=== PATIENT | male | born 1935 | race Caucasian/White ===

== ENCOUNTER 2018-06-26 10:31 | Day surgery (SDC) | payer OTHER ==
[2018-06-26] MEDS ORDERED: NS 1,000 ML IV ONE (10:38)
[2018-06-26] MEDS ORDERED: FAMOTIDINE 20 MG TAB PO ONE (10:38)
[2018-06-26] MEDS ORDERED: ASPIRIN EC 325 MG TAB PO ONE (10:38)
[2018-06-26] MEDS ORDERED: diphenhydrAMINE 25 MG CAP PO ONE (10:38)
[2018-06-26] MEDS ORDERED: DIAZEPAM 5 MG TAB PO ONE (10:38)
[2018-06-26 11:09] LABS: PLATELET COUNT 245 10^3/uL (150-400)
[2018-06-26] MEDS ORDERED: MIDAZOLAM 2 MG/2 ML VIAL ONE (11:16)
[2018-06-26] MEDS ORDERED: fentaNYL 100 MCG/2 ML INJ ONE (11:16)
[2018-06-26] MEDS ORDERED: LIDOCAINE 1% 300 MG/30 ML SDV ONE (11:16)
[2018-06-26 11:17] LABS: INR 0.95 (0.83-1.16); PROTIME(PATIENT) 12.9 SEC (12.0-15.0)
[2018-06-26] MEDS ORDERED: HEPARIN 10,000 UNIT/10 ML MDV (1,000 UNIT/ML) ONE (11:17)
[2018-06-26] MEDS ORDERED: IOPAMIDOL (ISOVUE-370) 150 ML BTL IV ONE (11:17)
[2018-06-26] MEDS ORDERED: VERAPAMIL 5 MG/2 ML VIAL ONE (11:17)
--- NOTE | 2018-06-26 11:23 | PDPROPOC ---
Sedation Plan of Care Sedation Plan of Care: vital signs stable, mental status noted, patient educated of risks, benefits, alternatives, patient can tolerate sedation ASA Classification: ASA 1 Planned drugs: fentanyl, midazolam Mallampati Score: Class 1 Mallampati Reference Image: Patient passed 3-3-2 rule?: Yes
--- NOTE | 2018-06-26 11:23 | PDHPUP ---
History & Physical Update H&P update statement: This history and physical update is based on an assessment of the patient which was completed after admission or registration (within 24 hours), but prior to the surgery/procedure. H&P update: H&P reviewed & patient examined, no change in patient's condition since H&P completed
--- NOTE | 2018-06-26 14:03 | PDDXCAT ---
Diagnostic Cath Note - . Date: 06/26/18 Upper Shaper: Jomar Indication: High-risk criteria on noninvasive testing (choose option below) High-risk criteria on non-invasive testing: stress-induced moderate-size multiple perfusion defects - Procedure Access: right wrist Procedure: left heart catheterization, coronary angiography, left ventriculogram - Materials Left Heart Cath size: 5F Left Heart Cath materials: JL3.5, JR4.0, pigtail - Findings-Left Heart Catheterization LM: Unobstructed LAD: 50% eccentric proximal plaque. LCX: Unobstructed RCA: Dominant: Unobstructed EDP: 15 mm of mercury LVEF: 60 Wall motion: Normal Complications: None Estimated blood loss: <50ml Closure method: TR Band Assessment: No contraindications to hip surgery identified by today's examination. Moderate nonobstructive coronary atherosclerotic cardiovascular disease. Preserved left ventricular systolic function with normal filling pressures. Plan: Continue aggressive secondary prevention. Clinical follow-up.
--- NOTE | 2018-06-26 14:40 | CPEKG ---
Test Reason : OPEN Blood Pressure : / mmHG Vent. Rate : 060 BPM Atrial Rate : 060 BPM P-R Int : 161 ms QRS Dur : 122 ms QT Int : 422 ms P-R-T Axes : 050 -57 030 degrees QTc Int : 422 ms Sinus rhythm Nonspecific IVCD with LAD Confirmed by Albino Gordon ([id number]) on 06/26/2018 2:40:22 PM Referred By: Confirmed By:Albino Gordon
[2018-06-26] MEDS ORDERED: LOPERAMIDE HCL 2 MG CAP PO PRN (16:45)
[2018-06-26] MEDS ORDERED: BUDESONIDE 3 MG EC CAP PO SCH (22:00)
[2018-06-27] MEDS ORDERED: ASPIRIN 81 MG CHEWABLE TAB PO SCH (09:00)
[2018-06-27] MEDS ORDERED: CLOPIDOGREL BISULFATE 75 MG TAB PO SCH (09:00)
== END 2018-06-26 18:05 | disposition home or self-care (01) ==
LOC: FCATH 10:31
PROVIDERS: ATTEND Internal Medicine Interventional Cardiology
PROC: 4A023N7 Measurement of Cardiac Sampling and Pressure, Left Heart, Percutaneous Approach (ICD-10-PCS; principal; 2018-06-26)
PROC: B2151ZZ Fluoroscopy of Left Heart using Low Osmolar Contrast (ICD-10-PCS; principal; 2018-06-26)
PROC: B2111ZZ Fluoroscopy of Multiple Coronary Arteries using Low Osmolar Contrast (ICD-10-PCS; principal; 2018-06-26)
DX: Z01.818 Encounter for other preprocedural examination (principal); I25.10 Atherosclerotic heart disease of native coronary artery without angina pectoris; I67.2 Cerebral atherosclerosis; I10 Essential (primary) hypertension; E78.5 Hyperlipidemia, unspecified; Z86.73 Personal history of transient ischemic attack (TIA), and cerebral infarction without residual deficits; Z86.711 Personal history of pulmonary embolism
CPT/HCPCS: 93005; 93458; C1769; J1644; J2250; J3010; Q9967

== ENCOUNTER 2018-07-09 09:45 | Inpatient (IN) | payer OTHER ==
[~2018-07-09 09:45] MED LIST: POVIDONE-IODINE 20 ML in SODIUM CL IRRIG SOLUTION 500 ML IRR ONE; ROPIVACAINE 0.2% 80 MG, EPINEPHrine 0.2 MG, KETOROLAC TROMETHAMINE 30 MG in SYRINGE 0 ML IU ONE; TRANEXAMIC ACID 1,000 MG in NS 100 ML IV ONE; TRANEXAMIC ACID 3,000 MG in NS (SYRINGE) 50 ML IRR ONE
[2018-07-09] MEDS ORDERED: ceFAZolin 1 GM/5 ML SYR ONE (09:59)
[2018-07-09] MEDS ORDERED: TRANEXAMIC ACID 3,000 MG/50 ML BAG IRR ONE (09:59)
[2018-07-09] MEDS ORDERED: ceFAZolin 2 GM/DEXTROSE 100 ML IV ONE (10:01)
[2018-07-09] MEDS ORDERED: ONDANSETRON 4 MG/2 ML VIAL IVP ONE (10:01)
[2018-07-09] MEDS ORDERED: ACETAMINOPHEN 325 MG TAB PO ONE (10:01)
[2018-07-09] MEDS ORDERED: GABAPENTIN 300 MG CAP PO ONE (10:01)
[2018-07-09] MEDS ORDERED: DEXAMETHASONE 4 MG/ML VIAL IVP ONE (10:01)
[2018-07-09] MEDS ORDERED: FAMOTIDINE 20 MG TAB PO ONE (10:01)
[2018-07-09] MEDS ORDERED: LR 1,000 ML IV ONE (10:02)
--- NOTE | 2018-07-09 10:46 | PDHPUP ---
History & Physical Update H&P update statement: This history and physical update is based on an assessment of the patient which was completed after admission or registration (within 24 hours), but prior to the surgery/procedure. H&P update: H&P reviewed & patient examined
[2018-07-09] MEDS ORDERED: MIDAZOLAM 2 MG/2 ML VIAL IVP ONE (11:43)
[2018-07-09] MEDS ORDERED: MIDAZOLAM 2 MG/2 ML VIAL ONE (11:46)
[2018-07-09] MEDS ORDERED: fentaNYL 100 MCG/2 ML INJ ONE (11:54)
[2018-07-09] MEDS ORDERED: PROPOFOL/EMULSION 500 MG/50 ML BOTTLE IV ONE (11:54)
--- NOTE | 2018-07-09 12:46 | PDANEPAE ---
ANE History of Present Illness DJD R hip s/f R SOL ANE Past Medical History - Cardiovascular History Hx Hypertension: Yes Hx Arrhythmias: No Hx Chest Pain: No Hx Coronary Artery / Peripheral Vascular Disease: Yes Hx CHF / Valvular Disease: No Hx Palpitations: No Cardiovascular History Comment: CEA on left, recent cath without significant CAD - Pulmonary History Hx COPD: No Hx Asthma/Reactive Airway Disease: No Hx Recent Upper Respiratory Infection: No Hx Oxygen in Use at Home: No Hx Sleep Apnea: Yes Sleep Apnea Screening Result - Last Documented: Positive Pulmonary History Comment: TERESA uses cpap - Neurologic History Hx Cerebrovascular Accident: No Hx Seizures: No Hx Dementia: No Neurologic History Comment: TIA 20yrs ago - Endocrine History Hx Diabetes: No - Renal History Hx Renal Disorders: No Renal History Comment: HX RHABDOMYLOSIS r/t statins - Liver History Hx Hepatic Disorders: No - Neurological & Psychiatric Hx Hx Neurological and Psychiatric Disorders: No - Cancer History Hx Cancer: Yes Cancer History Comment: PROSTATE CA. SKIN SQUAMOUS CELL - Congenital Disorder History Hx Congenital Disorders: No - GI History Hx Gastrointestinal Disorders: Yes Gastrointestinal History Comment: ESOPHAGEAL/HIATEL HERNIA. DIAHRREA. - Other Health History Other Health History: bruises easily - Chronic Pain History Chronic Pain: No - Surgical History Prior Surgeries: prostate CA 15yrs ago. esophageal/stomach surgery. cardiac cath 2019 ANE Review of Systems Review of Systems: - Exercise capacity METS (RN): 4 METS ANE Patient History - Allergies Allergies/Adverse Reactions: Pfaxmkh-Sge-Lou Reductase Inhibitor Allergy (Verified 06/12/18 11:28) Other-Enter Comments SEASONAL Allergy (Mild, Uncoded 05/27/09 17:54) NASAL CONGESTION - Home Medications Home medications: home medication list seen and reviewed Home Medications: Aspirin [Aspirin 81mg (*)] 06/25/18 [Last Taken 07/05/18] Budesonide [Budesonide EC] 06/25/18 [Last Taken 07/08/18] Clopidogrel Bisulfate [Plavix (*)] 06/25/18 [Last Taken 07/05/18] Loperamide HCl [Imodium 2 mg (*)] 06/25/18 [Last Taken 2 Days Ago ~07/07/18] - NPO status NPO Status: no food or drink >8 hours NPO Since - Liquids (Date): 07/08/18 NPO Since - Liquids (Time): 20:30 NPO Since - Solids (Date): 07/08/18 NPO Since - Solids (Time): 20:30 - Anes Hx Anes Hx: no prior problems - Smoking Hx Smoking Status: Former smoker - Alcohol Use Alcohol Use: None - Family Anes Hx Family Anes Hx: none Family Hx Anesthesia Complications: none ANE Labs/Vital Signs - Vital Signs Blood Pressure: 175/79 Heart Rate: 55 Respiratory Rate: 16 O2 Sat (%): 93 Height: 179.07 cm Weight: 86.183 kg ANE Physical Exam - Airway Neck exam: FROM Mallampati Score: Class 1 - Pulmonary Pulmonary: no respiratory distress - Cardiovascular Cardiovascular: regular rate and rhythym - ASA Status ASA Status: II ANE Anesthesia Plan Anesthesia Plan: spinal (rr/b/a explained and plavix considered-risk very low)
[2018-07-09] MEDS ORDERED: PROPOFOL 200 MG/20 ML VIAL ONE ×2 (12:49→13:06)
--- NOTE | 2018-07-09 13:26 | POSTOPPROG ---
Post Op Note Date of Operation: 07/09/18 Surgeon: Andrzej Willett Ip Litigation Paralegal: Steven/Christine Anesthesiologist: Dr. Adarsh Paz Post-op Diagnosis: Right hip severe degenerative arthritis Procedure: Right total hip arthroplasty Inf/Abcess present in the surg proc area at time of surgery?: No EBL: [id number]
[2018-07-09] MEDS ORDERED: traMADol 50 MG TAB PO PRN (13:40)
[2018-07-09] MEDS ORDERED: TEMAZEPAM 15 MG CAP PO PRN (13:40)
[2018-07-09] MEDS ORDERED: ONDANSETRON 4 MG/2 ML VIAL IVP PRN ×2 (13:40→13:42)
[2018-07-09] MEDS ORDERED: oxyCODONE IR 5 MG TAB PO PRN ×2 (13:40→13:42)
[2018-07-09] MEDS ORDERED: LACTULOSE 20 GM/30 ML UDCUP PO PRN (13:40)
[2018-07-09] MEDS ORDERED: BISACODYL 10 MG SUPP PR PRN (13:40)
[2018-07-09] MEDS ORDERED: DIPHENOXYLATE/ATROPINE LOMOTIL 1 TAB PO PRN (13:40)
[2018-07-09] MEDS ORDERED: ONDANSETRON DISINTEGRATING 4 MG TAB PO PRN (13:40)
[2018-07-09] MEDS ORDERED: POLYETHYLENE GLYCOL 3350 17 GM PKT PO PRN (13:40)
[2018-07-09] MEDS ORDERED: NS 500 ML IV PRN (13:40)
[2018-07-09] MEDS ORDERED: PROMETHAZINE HCL 25 MG SUPPR PR PRN (13:40)
[2018-07-09] MEDS ORDERED: PROMETHAZINE HCL 25 MG/ML INJ IVP PRN ×2 (13:40→13:42)
[2018-07-09] MEDS ORDERED: METOCLOPRAMIDE 10 MG/2 ML VIAL IVP PRN ×2 (13:40→13:42)
[2018-07-09] MEDS ORDERED: CYCLOBENZAPRINE 10 MG TAB PO PRN (13:40)
[2018-07-09] MEDS ORDERED: MAGNESIUM HYDROXIDE 30 ML UDCUP PO PRN (13:40)
[2018-07-09] MEDS ORDERED: diphenhydrAMINE 25 MG CAP PO PRN (13:40)
[2018-07-09] MEDS ORDERED: PHENYLEPHRINE HCL 100 MCG/ML SYR IVP PRN (13:42)
[2018-07-09] MEDS ORDERED: fentaNYL 100 MCG/2 ML INJ IVP PRN (13:42)
[2018-07-09] MEDS ORDERED: MEPERIDINE 25 MG/0.5 ML AMP IVP PRN (13:42)
[2018-07-09] MEDS ORDERED: LABETALOL HCL 5 MG/ML 20 ML MDV IVP PRN (13:42)
[2018-07-09] MEDS ORDERED: DEXAMETHASONE 4 MG/ML VIAL IVP PRN (13:42)
[2018-07-09] MEDS ORDERED: ALBUTEROL 3 ML DEYVIAL IH PRN (13:42)
[2018-07-09] MEDS ORDERED: NALOXONE HCL 0.4 MG/ML INJ IVP PRN (13:42)
[2018-07-09] MEDS ORDERED: LR 500 ML IV PRN (13:42)
[2018-07-09] MEDS ORDERED: LR 1,000 ML IV SCH (14:00)
--- NOTE | 2018-07-09 14:17 | GOP ---
DATE OF OPERATION: 07/09/2018 SURGEON: Andrzej Willett MD LEAD TECHNOLOGIST IN CYTOGENETICS: 1. Chalo Harris PA-C. 2. Keagan King CFA. ANESTHESIA: Combination of Marcaine, spinal, and IV sedation by Dr. Adarsh Paz. PREOPERATIVE DIAGNOSIS: Right hip severe degenerative arthritis. POSTOPERATIVE DIAGNOSIS: Right hip severe degenerative arthritis. PROCEDURE PERFORMED: Right total hip arthroplasty, ceramic femoral head on highly cross-linked polye thylene liner. FINDINGS: ESTIMATED BLOOD LOSS: About 400 mL. DESCRIPTION OF PROCEDURE: The patient was given 2 g of IV Ancef preoperatively within 60 minutes of surgery. He also received 1000 mg of IV tranexamic acid. He was placed on the operating room table and given spinal anesthesia with Marcaine by Dr. Paz. He was then placed supine and given IV sedat ion. A Lopez catheter was not used. He wore a JESSICA stocking and SCD on the nonoperative leg. He was rolled to the left lateral decubitus position. The position was secured with the pegboard table att achment. An axillary roll was used and all pressure points were carefully padded. I was careful to lock his pelvis in a rigid vertical position. His perineum was isolated with plastic adhesive drapes . The right hip and right lower extremity were prepped with ChloraPrep. They were draped free using sterile sheets, stockinette, and Ioban plastic adhesive drapes. The [employer] time-out was performed to verify the correct surgical side and site, an d the correct patient identity. The [place] time-out was also performed. I made a 5-inch straight oblique posterolateral hip skin incision. Subcutaneous tissues were sharply divided, and hemostasis was obtained using electrocautery. The fascia david was identified and split distally along the axis of its fibers. I then curved posteriorly and proximally and split the fasci a of the gluteus nakia and bluntly split the muscle fibers in line with their orientation. The Mare pickettley self-retaining retractor was inserted. His sciatic nerve was located, partially exposed, and p rotected throughout the procedure. The external rotators and the posterior hip capsule were divided as separate layers at the base of the femoral neck, tagged, and reflected posteriorly. A smooth 1/8- inch Steinmann pin was inserted vertically into the ilium, superior to the acetabulum. A 1/8-inch dr ill bit was inserted vertically into the greater trochanter and parallel to the first pin. The dista nce between the 2 was measured for leg length reference. His femoral head was dislocated posteriorly . Severe degenerative changes were present on the femoral head. The femoral neck was osteotomized a t the appropriate level and inclination. I was careful to preserve all the posterior capsule and most of the anterior capsule. The remnant of his damaged labrum was excised. I prepared the femur first. This allowed me to odd job worker the amount of natural femoral neck anteversion. This, in turn, allowed me to later determine the correct amount of cup anteversion. He had approxi mately 10 degrees of natural femoral neck anteversion. The canal was opened laterally with a box chi kem. I hand-broached sequentially up to size 8. I used a Clara Accolade II size 8 broach as a tri al stem. I was careful to lateralize adequately. Appropriate retractors were inserted to expose the acetabulum. The acetabulum was reamed sequentiall y up to 57 mm. I selected a 58 mm Eugene Tritanium Trident II cluster hole hemispherical shell. Th is was tapped securely into place in the proper degree of inclination and anteversion. I used the tr ansverse acetabular ligament and other acetabular bony landmarks to help me properly orient the cup. I performed a series of trial reductions to determine length and stability. I obtained an intraopera tive cross-table AP pelvis x-ray. I concluded that the size 8 stem with standard offset and a -2.5 m m neck with a 36 mm head was the proper combination. He was 4 or 5 mm short preoperatively and I was intentionally lengthening him. The 10-degree lipped Clara X3 highly cross-linked polyethylene liner was inserted and tapped secure ly into place. The Eugene Accolade II stem in a size 8 with standard offset was inserted press-fit and was very tight. I did one final trial reduction and confirmed that the -2.5 mm neck length with a 36 mm head was the proper combination. The Clara Biolox Delta ceramic head with an outside diame ter of 36 mm and a neck length of -2.5 mm was tapped securely onto the clean trunnion. The acetabulu m was irrigated, cleaned, and the hip was reduced 1 final time. He had excellent anterior and security administrator ior stability and appropriate length. 40 mL of the joint anesthetic cocktail were injected into the deep musculature and subcutaneous tissu es around the skin edges. The joint was thoroughly irrigated 1 final time with a dilute Betadine jay ution. 50 mL tranexamic acid solution was irrigated into the wound and left in place. His sciatic n erve was reinspected and looked unharmed. The external rotators and the posterior hip capsule were repaired in separate layers with #2 FiberWir e sutures through drill holes in the greater trochanter. This provided a strong posterior capsular a nd external rotator repair. The fascia david was closed first with 2 [id number] #2 FiberWire sut ures, followed by a running #2 barbed Ethicon Stratafix PDO suture. Subcutaneous tissues were closed in layers with interrupted 2-0 Monocryl sutures, followed by a running 0 barbed Ethicon Stratafix Mo noderm suture. The skin was closed with a running 3-0 barbed Ethicon Stratafix Monoderm subcuticular suture. The skin edges were reapproximated and sealed with Dermabond glue. The wound was covered w ith a large piece of waterproof Mepilex surgical dressing. A sacral Mepilex dressing was also applie d. A long-leg JESSICA stocking and SCD were applied to his right lower extremity. He wore a stocking and SC D on the opposite leg during the procedure. An abduction pillow was placed between his knees. He wa s awakened from anesthesia and rolled to the supine position [facility] He was taken to PACU in satisfactory condition. There were no recognized intraoperative complications. INSTRUMENT COUNT: The sponge and needle count were correct on 2 occasions. IMPLANTS: I used a Eugene Tritanium Trident II hemispherical cluster hole acetabular shell with an outside diameter of 56 mm. The liner was a Eugene X3 10-degree lipped highly cross-linked liner wit h an inside diameter of 36 mm. The femoral component was a press-fit Eugene standard offset Accolad e II stem in a size 8. The femoral head was a Eugene Biolox Delta ceramic head with a -2.5 mm neck length and a 36 mm outside diameter. Toño Harris and Keagan King acted as surgical assistants. Their assistance was a medical necess ity for safe completion of the procedure. Copy requested to: Dr. Tacos [place]ak[place], [place] /[id number]/MODL
--- NOTE | 2018-07-09 14:53 | PDMN ---
Medical Necessity Medical necessity: Pt meets IP criteria as of 07/09/2018 per and DA S-560, SOL; Medicare IP only procedure
[2018-07-09] MEDS: KETOROLAC 15 MG/1 ML SDV IVP SCH ×2 (18:03→18:04)
[2018-07-09] MEDS: ACETAMINOPHEN 325 MG TAB PO SCH (18:04)
[2018-07-09] MEDS: IRBESARTAN 75 MG TAB PO SCH (18:04)
[2018-07-09] MEDS: SENNOSIDES/DOCUSATE SODIUM TAB PO SCH (20:33)
[2018-07-09] MEDS: ceFAZolin 2 GM/DEXTROSE 100 ML IV SCH (20:33)
[2018-07-09] MEDS: FAMOTIDINE 20 MG TAB PO SCH (20:34)
[2018-07-09] MEDS: ASPIRIN 325 MG TAB PO SCH (20:37)
[2018-07-10] MEDS: ACETAMINOPHEN 325 MG TAB PO SCH ×3 (01:09→12:22)
[2018-07-10] MEDS: KETOROLAC 15 MG/1 ML SDV IVP SCH ×2 (02:05→08:41)
[2018-07-10] MEDS: ceFAZolin 2 GM/DEXTROSE 100 ML IV SCH (04:05)
--- NOTE | 2018-07-10 07:24 | SOAPPROG ---
SOAP Progress Note Assessment/Plan: Assessment: Afebrile. Awake and alert. Very little pain so far. He has been up and walking. Sciatic nerve intact. His dressing is dry. H&H are good. Postop films look excellent. Plan: Continue physical therapy today. Discharge later today. 07/10/18 07:24 Objective: Vital Signs Temp Pulse Resp BP Pulse Ox 36.6 C 53 L 92 H 129/58 H 2 L 07/10/18 04:00 07/10/18 04:00 07/10/18 04:00 07/10/18 04:00 07/10/18 04:00 Laboratory Results 07/10/18 04:51 07/09/18 07/10/18 07/11/18 05:59 05:59 05:59 Intake Total 1850 Output Total 1450 Balance 400 ICD10 Worksheet Patient Problems: Problems Problem Status Onset Osteoarthritis of right hip Acute
[2018-07-10] MEDS ORDERED: FERROUS SULFATE 325 MG TAB PO SCH (08:00)
--- NOTE | 2018-07-10 08:39 | GDS ---
ADMISSION DIAGNOSIS: Right hip severe degenerative arthritis. DISCHARGE DIAGNOSIS: Right hip severe degenerative arthritis. OPERATION PERFORMED: July 09, 2018, right total hip arthroplasty. POSTOPERATIVE COMPLICATIONS: None. CONDITION ON DISCHARGE: Improved. HOSPITAL COURSE: The patient was admitted to the hospital the morning of surgery. His admission CBC , electrolytes, BUN, and creatinine were normal. The same day, under a combination of Marcaine, spin al, and IV sedation, he underwent a right total hip arthroplasty. Postoperatively, he was treated with multimodal DVT prophylaxis, including aspirin. On the first pos toperative day, his hemoglobin and hematocrit were 11.7 and 34.8. He was able to void spontaneously. He was seen by Physical Therapy and made good progress with ambulation and stairs. DISPOSITION: The patient is discharged to his home. He will go to outpatient physical therapy in my office. Continue aspirin 325 mg p.o. daily for 21 days. He may progress to full weightbearing on t he right as tolerated. Use an abduction pillow in bed for 3 weeks. JESSICA stockings for 1 week. He sheppard s prescriptions for Celebrex, oxycodone, tramadol for pain control. I will see him back in the offic e on July 31, 2018. If there any problems, he is to call me at the office. Copy requested to: Dr. Tacos [place], [place] /[id number]/RISHABH
[2018-07-10] MEDS: FAMOTIDINE 20 MG TAB PO SCH (08:41)
[2018-07-10] MEDS: ASPIRIN 325 MG TAB PO SCH (08:41)
[2018-07-10] MEDS: SENNOSIDES/DOCUSATE SODIUM TAB PO SCH (08:42)
[2018-07-10] MEDS ORDERED: BUDESONIDE 3 MG EC CAP PO SCH (09:00)
[2018-07-10] MEDS: IRBESARTAN 75 MG TAB PO SCH (10:18)
--- NOTE | 2018-07-10 11:03 | ASMTLACE ---
LACE Length of stay for Answers: 2 days current admission Acuity / Level of Answers: Yes Care: Did the patient have an inpatient admission? Comorbidities - select Answers: Cerebrovascular disease all that apply (CVA, TIA, aneurysms, vasc ular dementia) Other Notes: HTN; DVT # of Emergency department Answers: 0 visits in the last 6 months Score: 7 Date Signed: 07/10/2018 11:03 AM Electronically Signed By:CONNIE Enriquez
--- NOTE | 2018-07-10 11:04 | ASMTCMCOM ---
CM Note CM Note Notes: Pt had planned OA of hip. PT rec home/outpatient, rec outpatient. No CM d/c needs identified. Date Signed: 07/10/2018 11:04 AM Electronically Signed By:CONNIE Enriquez
[2018-07-10 11:27] VITALS: BP 107/90
--- NOTE | 2018-07-14 14:21 | POSTANESTH ---
Post Anesthetic Evaluation Cardiovascular Status: Normal, Stable Respiratory Status: Normal, Stable Level of Consciousness/Mental Status: Can Participate in Eval Pain Control: Adequate, Prn Tx Ordered Nausea/Vomiting Control: Adequate, Prn Tx Ordered Complications Possibly Related to Anesthesia: None Noted
== END 2018-07-10 14:02 | disposition home or self-care (01) | DRG 470 ==
LOC: F3E 09:45 → F3N 14:48
PROVIDERS: ADMIT Orthopaedic Surgery; ATTEND Orthopaedic Surgery
PROC: 0SR904A Replacement of Right Hip Joint with Ceramic on Polyethylene Synthetic Substitute, Uncemented, Open Approach (ICD-10-PCS; principal; 2018-07-09 12:30)
DX: M16.11 Unilateral primary osteoarthritis, right hip (principal); E78.00 Pure hypercholesterolemia, unspecified; K21.9 Gastro-esophageal reflux disease without esophagitis; G47.33 Obstructive sleep apnea (adult) (pediatric); I10 Essential (primary) hypertension; I25.10 Atherosclerotic heart disease of native coronary artery without angina pectoris; Z86.711 Personal history of pulmonary embolism; Z86.73 Personal history of transient ischemic attack (TIA), and cerebral infarction without residual deficits; Z85.46 Personal history of malignant neoplasm of prostate; Z87.891 Personal history of nicotine dependence
CPT/HCPCS: 97110-GP; 97116-GP; 97161-GP; 97165-GO; 97535-GO; J0171; J0690; J1100; J1885; J2250; J2405; J2704; J2795; J3010